=== PATIENT | male | born 1990 | race African-American/Black ===

== ENCOUNTER 2016-11-26 21:40 | Emergency (ER) | payer MEDICAID ==
[~2016-11-26] VITALS: Ht 175.3 cm; Wt 59.0 kg
[2016-11-27] MEDS ORDERED: FAMOTIDINE 20MG/2ML VIAL IV STA (00:27)
[2016-11-27] MEDS ORDERED: ONDANSETRON HCL 4MG/2ML VIAL IV STA (00:27)
[2016-11-27] MEDS ORDERED: SODIUM CHLORIDE 0.9% 1,000 ML IV ONE (00:27)
[2016-11-27] MEDS ORDERED: KETOROLAC 30MG/ML VIAL IV STA (00:27)
[2016-11-27 01:01] LABS: HEMATOCRIT. 43.2 % (42.0-52.0); HEMOGLOBIN. 14.5 g/dL (14.0-18.0); MEAN CORPUSCULAR HEMOGLOBIN 31.4 pg (28.0-32.0); MEAN CORPUSCULAR VOLUME 93.3 fL (80.0-94.0); MEAN PLATELET VOLUME 8.7 fl (7.4-10.4); PLATELET 216 x1000/uL (130-400); RED BLOOD CELL COUNT 4.63 mill/uL (4.7-6.1); RED CELL DISTRIBUTION WIDTH 13.4 % (11.6-14.6)
[2016-11-27 01:07] LABS: CHLORIDE 105 mEq/L (98-107)
[2016-11-27 01:09] LABS: INR 1.1; PROTHROMBIN TIME 11.4 sec
[2016-11-27 01:15] LABS: CARBON DIOXIDE 24 mEq/L (21-32)
[2016-11-27 01:32] LABS: PLATELET ESTIMATE NORMAL
[2016-11-27 02:15] VITALS: BP 139/91
[2016-11-27] MEDS ORDERED: ACETAMINOPHEN 500MG TABLET PO ONE (02:30)
== END 2016-11-27 03:42 | disposition home or self-care (01) ==
LOC: ER 21:41
DX: R10.12 Left upper quadrant pain (principal); R11.2 Nausea with vomiting, unspecified; J45.909 Unspecified asthma, uncomplicated
CPT/HCPCS: 36415; 80053; 83690; 85025; 85610; 96361; 96374; 96375; 99284; J1885; J2405; J3490; J7030